=== PATIENT | male | born 1960 | race African-American/Black ===

== ENCOUNTER 2018-10-12 04:49 | Emergency (ER) | payer SELFPAY ==
[~2018-10-12] VITALS: Ht 182.9 cm; Wt 106.6 kg
[2018-10-12] MEDS ORDERED: DILANTIN100 MG ORAL (05:05)
[2018-10-12 05:08] VITALS: BP 129/89
[2018-10-12] MEDS ORDERED: AUGMENTIN 875-1 EAC1 ORAL (05:47)
[2018-10-12] MEDS ORDERED: DEBROX15 M1 BOTH EARS (05:47)
[2018-10-12] MEDS ORDERED: PSEUDOEPHEDRINE60 MG PO (05:48)
--- NOTE | 2018-10-12 05:49 | Emergency Room Report ---
History of Present Illness General Chief Complaint: Earache Source: Patient Present Illness HPI This is a 58-year-old male with history of seizure. He presents with chief complaint of ear pain. He has a cough and congestion for the last 2 weeks. Had ear pain on the left side for a week. That seemed to improve. Now with right ear pain. He said it felt clogged up worse when he moves his mouth. Denies any fever chills but denies any nausea vomiting. Pain is throbbing in nature. 7 out of 10. Allergies: Coded Allergies: No Known Allergies (Unverified , 10/12/18) Patient History Past Medical History: see triage record, old chart reviewed, seizures Past Surgical History: none Pertinent Family History: none Social History: Denies: smoking Immunizations: other Reviewed Nursing Documentation: PMH: Agreed; PSxH: Agreed Nursing Documentation-PMH Hx Seizures: Yes - Epilepsy Review of Systems Eye: Denies: eye pain, blurred vision ENT: Reports: ear pain; Denies: nose congestion, throat swelling Respiratory: Reports: cough; Denies: shortness of breath Cardiovascular: Denies: chest pain, palpitations Gastrointestinal: Denies: abdominal pain, diarrhea, nausea, vomiting Musculoskeletal: Denies: back pain, joint pain Skin: Denies: rash Neurological: Denies: headache, numbness Endocrine: Denies: increased thirst, increased urine Hematologic/Lymphatic: Denies: easy bruising All Other Systems: negative except mentioned in HPI Physical Exam Vital Signs Date Time Temp Pulse Resp B/P (MAP) Pulse Ox O2 Delivery O2 Flow Rate FiO2 10/12/18 04:59 98.1 71 16 129/89 99 Room Air vitals carlos [id number] EP Interpretation: reviewed, normal General Appearance: well appearing, no apparent distress, alert Head: normocephalic, atraumatic Eyes: bilateral eye PERRL, bilateral eye EOMI ENT: hearing grossly normal, normal pharynx, other - Bilateral ear obstructed by cerumen Neck: full range of motion, supple, no meningismus Respiratory: chest non-tender, lungs clear, normal breath sounds Cardiovascular #1: regular rate, rhythm, no murmur Gastrointestinal: normal bowel sounds, non tender, no mass, no organomegaly, no bruit, non-distended Musculoskeletal: back normal, gait/station normal, normal range of motion Psychiatric: mood/affect normal Skin: warm/dry Procedures Additional Procedure Procedure Narrative procedure: Ear irrigation Indication: Cerumen impaction Description: I hear to give the ear with normal saline using an 18-gauge angiocatheter. Only small amount of wax removed. Patient tolerated procedure without any problem Medical Decision Making Diagnostic Impression: Primary Impression: Earache symptoms in both ears Additional Impression: Impacted cerumen of both ears ER Course Patient with URI symptoms now with ear pain. The symptoms concerning for possible infection. His ear canals very narrow and very small. I am unable to see the eardrum itself. Because of the symptoms and duration of her go ahead and put him on antibiotics. There is no obvious perforation. Will prescribed eardrops and have her follow-up as an outpatient. Last Vital Signs Date Time Temp Pulse Resp B/P (MAP) Pulse Ox O2 Delivery O2 Flow Rate FiO2 10/12/18 05:08 98.1 71 16 129/89 99 Room Air Status: improved Disposition: HOME, SELF-CARE Condition: Stable Scripts Pseudoephedrine Hcl* (SUDAFED*) 60 Mg Tablet 60 MG PO Q6H, #20 TAB Prov: Jarret Perez MD 10/12/18 Carbamide Peroxide (DEBROX) 15 Ml Drops 5 DROP BOTH EARS TWICE A DAY for 7 Days, #10 ML 0 Refills Prov: Jarret Perez MD 10/12/18 Amoxicillin/Potassium Clav 875-125* (AUGMENTIN 875-125 TABLET*) 1 Each Tablet 1 TAB ORAL TWICE A DAY, #14 TAB Prov: Jarret Perez MD 10/12/18 Referrals: NON PHYSICIAN (PCP) Patient Instructions: Earache Additional Instructions: Follow-up with your doctor in 7 days for recheck. Return if symptom worsen. Jarret Perez MD Oct 12, 2018 05:49
[2018-10-12 05:54] VITALS: BP 129/89
== END 2018-10-12 05:55 | disposition home or self-care (01) ==
LOC: EMR 05:00
DX: H92.03 Otalgia, bilateral (principal); H61.23 Impacted cerumen, bilateral; G40.909 Epilepsy, unspecified, not intractable, without status epilepticus
CPT/HCPCS: 99283

== ENCOUNTER 2018-11-21 15:09 | Emergency (ER) | payer MEDICAID ==
[~2018-11-21] VITALS: Ht 182.9 cm; Wt 102.5 kg
[~2018-11-21 15:09] MED LIST: AUGMENTIN 875-1 EAC1 ORAL; DEBROX15 M1 BOTH EARS; DILANTIN100 MG ORAL; PSEUDOEPHEDRINE60 MG PO
[2018-11-21 15:34] VITALS: BP 110/65
--- NOTE | 2018-11-21 15:37 | NUR ---
ED Nurse Note: Pt presented to ED c/o Rt ear pain. Pt states that he was cleaning his ear w/ a q-tip and he lost th ecotton in the ear. Pt is AAOx4 repirations are even and unlabored.
--- NOTE | 2018-11-21 15:56 | Emergency Room Report ---
History of Present Illness General Chief Complaint: Earache Source: Patient Present Illness HPI 58-year-old male presents to the emergency department complaining of foreign body in the right ear for 2 days. Patient reports that he was using a Q-tip and when he pulled it out of his ear some of the cotton was pulled off and he believes it inside his ear. Patient denies pain at this time he denies changes in hearing or ringing in the ears. Patient states primary symptom is foreign body sensation. Denies blood or discharge from the ear. Denies cough, nasal congestion. No fevers, chills or ill contacts. Allergies: Coded Allergies: No Known Allergies (Unverified , 10/12/18) Patient History Past Medical History: see triage record Past Surgical History: none Reviewed Nursing Documentation: PMH: Agreed; PSxH: Agreed Nursing Documentation-PMH Past Medical History: No History, Except For Hx Seizures: Yes - Epilepsy Review of Systems All Other Systems: negative except mentioned in HPI Physical Exam Vital Signs Date Time Temp Pulse Resp B/P (MAP) Pulse Ox O2 Delivery O2 Flow Rate FiO2 11/21/18 15:15 98.4 75 18 102/63 96 Room Air Sp02 EP Interpretation: reviewed, normal General Appearance: no apparent distress, alert, GCS 15, non-toxic Head: normocephalic, atraumatic Eyes: bilateral eye normal inspection, bilateral eye PERRL ENT: hearing grossly normal, normal voice, other - No obvious Fb in the right ear. no evidence trauma to the external canal. -- moderate creamy yellowish d/ c, and ear wax Neck: full range of motion Respiratory: normal breath sounds, speaking full sentences Cardiovascular #1: regular rate, rhythm Musculoskeletal: back normal, gait/station normal, normal range of motion, non- tender Neurologic: alert, oriented x3, responsive, motor strength/tone normal, sensory intact, speech normal, grossly normal Psychiatric: judgement/insight normal Skin: normal color, no rash, warm/dry, well hydrated Lymphatic: no adenopathy Medical Decision Making PA Attestation Dr. Spence is my supervising Physician whom patient management has been discussed with. Diagnostic Impression: Primary Impression: Foreign body of ear, right Qualified Codes: T16.1XXA - Foreign body in right ear, initial encounter Additional Impression: Upper respiratory infection, viral ER Course 58-year-old male presents to the emergency department complaining of foreign body in the right ear for 2 days. Patient reports that he was using a Q-tip and when he pulled it out of his ear some of the cotton was pulled off and he believes it inside his ear. Patient denies pain at this time he denies changes in hearing or ringing in the ears. Patient states primary symptom is foreign body sensation. Denies blood or discharge from the ear. Denies cough, nasal congestion. No fevers, chills or ill contacts. Ddx considered but are not limited to OM, OE, mastoiditis, TM perforation, FB Vital signs: are WNL, pt. is afebrile H&PE are most consistent with foreign body of the left ear ORDERS: none required at this time, the diagnosis is clinical -OTOSCOPY: No obvious Fb in the right ear. no evidence trauma to the external canal. -- moderate creamy yellowish d/c, and ear wax. ED INTERVENTIONS: --Unable to visualize FB, so no attempts were made to blindly remove fb. DISCHARGE: At this time pt. is stable for d/c to home. Will provide printed patient care instructions, and any necessary prescriptions. Care plan and follow up instructions have been discussed with the patient prior to discharge. D/w followup with ENT specialist for removal. Last Vital Signs Date Time Temp Pulse Resp B/P (MAP) Pulse Ox O2 Delivery O2 Flow Rate FiO2 11/21/18 15:34 98.4 80 18 110/65 96 Room Air Disposition: HOME, SELF-CARE Condition: Stable Scripts Cetirizine Hcl/Pseudoephedrine (ZYRTEC-D TABLET) 1 Each Tab.er.12h 1 EACH ORAL Q12HR for 7 Days, #14 TAB Prov: June James 11/21/18 Codeine/Promethazine Hcl* (PROMETHAZINE-CODEINE SYRUP*) 118 Ml Syrup 5 ML ORAL Q6H PRN for For Cough, #120 ML 0 Refills Prov: June James 11/21/18 Ciprofloxacin/Hydrocortisone (CIPRO HC OTIC SUSPENSION) 10 Ml Drops.susp 4 DROP OT BID for 7 Days, #10 ML Prov: June James 11/21/18 Patient Instructions: Ear Foreign Body, [id number] Additional Instructions: Take medications as directed. Follow up with a Primary Care Provider in 3-5 days, even if your symptoms have resolved. --Please review list of primary care clinics, if you do not already have a primary care provider Return sooner to ED if new symptoms occur, or current symptoms become worse. Do not drink alcohol, drive, or operate heavy machinery while taking Cough Syrup as this may cause drowsiness. - Please note that this Emergency Department Report was dictated using [employer] technology software, occasionally this can lead to erroneous entry secondary to interpretation by the dictation equipment. June James Nov 21, 2018 15:56
[2018-11-21] MEDS ORDERED: CIPRO HC OTIC S10 M1 OT (16:00)
[2018-11-21] MEDS ORDERED: ZYRTEC-D TABLE1 EACH ORAL (16:00)
[2018-11-21] MEDS ORDERED: PROMETHAZINE-C118 M1 ORAL (16:00)
[2018-11-21 16:25] VITALS: BP 112/65
== END 2018-11-21 16:30 | disposition home or self-care (01) ==
LOC: EMR 16:28
DX: T16.1XXA Foreign body in right ear, initial encounter (principal); X58.XXXA Exposure to other specified factors, initial encounter; Y92.9 Unspecified place or not applicable; J06.9 Acute upper respiratory infection, unspecified; G40.909 Epilepsy, unspecified, not intractable, without status epilepticus
CPT/HCPCS: 99282